=== PATIENT | female | born 1970 | race Caucasian/White ===

== ENCOUNTER 2024-11-17 13:54 | Outpatient (CLI) | payer BC, SELFPAY | END 2024-11-17 13:55 | disposition home or self-care (01) | PROVIDERS: PCP Family Medicine; Visit Provider Family Medicine | DX: E66.01 Morbid (severe) obesity due to excess calories (principal); R53.83 Other fatigue; Z13.6 Encounter for screening for cardiovascular disorders; F41.1 Generalized anxiety disorder; Z79.899 Other long term (current) drug therapy | CPT/HCPCS: 80048; 80061; 84443; 85025 ==

== ENCOUNTER 2024-12-15 13:43 | Outpatient (CLI) | payer BC, SELFPAY | END 2024-12-15 13:44 | disposition home or self-care (01) | LOC: MRI 13:45 | PROVIDERS: PCP Family Medicine; Visit Provider Orthopaedic Surgery | DX: M25.512 Pain in left shoulder (principal); M75.102 Unspecified rotator cuff tear or rupture of left shoulder, not specified as traumatic; M19.012 Primary osteoarthritis, left shoulder; M75.22 Bicipital tendinitis, left shoulder | CPT/HCPCS: 73221 ==

== ENCOUNTER 2025-01-04 15:10 | Outpatient (CLI) | payer BC, SELFPAY ==
--- NOTE | 2025-01-04 15:30 | CRLHL7_ITS ---
For Patients: As a result of the Century Cures Act, medical imaging exams and procedure reports are released immediately into your electronic medical record. You may view this report before your referring provider. If you have questions, please contact your health care provider. Indication: Neck pain. Technique: Multisequence multiplanar MRI of the cervical spine without the use of intravenous contrast. Comparison: MRI cervical spine dated 03/11/2022. Findings: Normal vertebral alignment and stature. Foreshortened appearance of the pedicles may reflecting a component of congenital spinal canal stenosis. No T1 hypointense infiltrative lesion. Multilevel disc desiccation and height loss with Modic type 1 degenerative endplate signal at C6-C7. The cervical spinal cord is normal in signal intensity. C2-C3: Mild facet joint arthrosis. No significant spinal canal or neural foraminal stenosis. C3-C4: Mild uncovertebral and facet joint arthrosis. No significant spinal canal foraminal stenosis. C4-C5: Small posterior disc osteophyte complex resulting in mild spinal canal stenosis. Mild bilateral neural foraminal narrowing associated with uncovertebral and facet joint arthrosis. C5-C6: Small posterior disc osteophyte complex resulting in mild spinal canal stenosis. Moderate bilateral neural foraminal narrowing associated with uncovertebral and facet joint arthrosis. C6-C7: Posterior disc bulge eccentric to the right. Decreased conspicuity of a small right paracentral disc protrusion on prior exam. No high-grade spinal canal stenosis. Moderate bilateral neural foraminal narrowing associated with uncovertebral and facet joint arthrosis. C7-T1: Mild facet joint arthrosis. No significant spinal canal or neural foraminal stenosis. Impression: 1. Similar multilevel disc height loss with associated Modic type 1 degenerative endplate signal at C6-C7. 2. Foreshortened appearance of the pedicles may reflect a component of congenital spinal canal stenosis. 3. At C4-C5, mild spinal canal stenosis and bilateral neural foraminal narrowing. 4. At C5-C6, mild spinal canal stenosis and moderate bilateral neural foraminal narrowing. 5. At C6-C7, posterior disc osteophyte complex eccentric to the right, decreased conspicuity of a right paracentral disc protrusion, and similar moderate bilateral neural foraminal narrowing. Dictated by Ronal Allan MD @ 01/05/2025 9:17:56 AM (Electronically Signed)
== END 2025-01-04 15:11 | disposition home or self-care (01) ==
LOC: MRI 15:11
PROVIDERS: PCP Family Medicine; Visit Provider Family Medicine
DX: M54.2 Cervicalgia (principal); M48.02 Spinal stenosis, cervical region; M50.221 Other cervical disc displacement at C4-C5 level; M50.222 Other cervical disc displacement at C5-C6 level; M50.223 Other cervical disc displacement at C6-C7 level; M54.9 Dorsalgia, unspecified; G89.29 Other chronic pain; Z98.890 Other specified postprocedural states; M79.602 Pain in left arm
CPT/HCPCS: 72141

== ENCOUNTER 2025-01-19 06:46 | Day surgery (SDC) | payer BC, SELFPAY ==
[2025-01-19] VITALS (18 sets, daily range): BP systolic 118–156; BP diastolic 74–86; PULSE 63–75; RESP 12–24; TEMP 36.4–36.7; O2SAT 88–100; BMI 47.2
[2025-01-19] MEDS: LACTATED RINGERS 1000 ML 1,000 ML 100 ML IV (07:10)
[2025-01-19] MEDS: CELECOXIB 200 MG CAPSULE PO (08:33)
[2025-01-19] MEDS: OXYCODONE (CR) 10 MG TAB.ER.12H PO (08:33)
[2025-01-19] MEDS: ACETAMINOPHEN 500 MG TABLET 1000 MG PO ×2 (08:33→14:30)
[2025-01-19] MEDS: fentaNYL 100 MCG/2 ML inj IVP (08:34)
[2025-01-19] MEDS: MIDAZOLAM HCL 1 MG/ML inj IVP (08:34)
--- NOTE | 2025-01-19 08:40 | SUR.PREOP ---
TIME?OUT:?0832 PT/RN/MDA?VERIFICATION?OF?SURGICAL?SITE,?PROCEDURE,?AND?CONSENT OBTAINED?PRIOR?TO?INVASIVE?PROCEDURE.
[2025-01-19] MEDS: TRANEXAMIC ACID 100 MG/ML INJ 1000 MG IV (09:22)
[2025-01-19] MEDS: CEFAZOLIN 1 GM inj IVP (09:22)
--- NOTE | 2025-01-19 09:30 | P.NB_ITS ---
Nerve Block Nerve Block Time Seen by Provider: 08:35 Date Seen: 01/19/25 Type of block requested by surgeon for post-operative analgesia: supraclavicular Side: left Time out performed: Yes Verification of patient name: Yes Verification of date of : Yes Site marking: site marked Name of person performing procedure: Roque Rodriguez Continuous monitoring Was continuous monitoring of O2 sat, B/P, cardiac rehabilitation specialist, recorded every 15 minutes?: Yes Procedure Checklist: sterile prep, needles and gloves Ultrasound guided. Images saved: Yes Medications given in 5ml increments after negative aspiration: Ropivicaine %: 0.5 mL: 25 Needle gauge: 20 Precedex (mcg): 25 Patient tolerated procedure well: Yes Additional comments: Injected in 5 mL increments after negative aspiration Block Charges Block Charge (with Pro Fee): Brachial Plexus Use of Ultrasound Machine for Block: Yes- US Guidance/pain block
--- NOTE | 2025-01-19 10:25 | P.ANES_ITS ---
Anesthesia Charges Start Date/Time Anesthesia Start Date: 01/19/25 Anesthesia Start Time: 08:43 Stop Date/Time Anesthesia Stop Date: 01/19/25 Anesthesia Stop Time: 11:45 Coding CPT Codes CPT Codes: ANESTH SHOULDER REPLACEMENT - 66532 ([id number]) P3 - PATIENT W/SEVERE SYS DISEASE, QK - PROGRAM PROPOSALS COORDINATOR 2-4 CNCRNT ANES PROC, QX - SPEECH PATHOLOGY TEACHER SVC W/ MD MED DIRECTION
--- NOTE | 2025-01-19 10:25 | W.ANESCHARGE ---
Anesthesia Charges Start Date/Time Anesthesia Start Date: 01/19/25 Anesthesia Start Time: 08:43 Stop Date/Time Anesthesia Stop Date: 01/19/25 Anesthesia Stop Time: 11:45 Coding CPT Codes CPT Codes: ANESTH SHOULDER REPLACEMENT - 56022 ([id number]) P3 - PATIENT W/SEVERE SYS DISEASE, QK - RECREATION ATTENDANT 2-4 CNCRNT ANES PROC, QX - MATERIALS ENGINEER SVC W/ MD MED DIRECTION
--- NOTE | 2025-01-19 11:05 | CRLHL7_ITS ---
For Patients: As a result of the Cures Act, medical imaging exams and procedure reports are released immediately into your electronic medical record. You may view this report before your referring provider. If you have questions, please contact your health care provider. INDICATION: Follow-up status post shoulder arthroplasty. COMPARISON: 11/20/2024 TECHNIQUE: Two views left shoulder FINDINGS: As discussed below: IMPRESSION: 1. Interval left shoulder hemiarthroplasty. Intact hardware. Expected postsurgical periarticular soft tissue gas. Dictated by Josh Gauthier MD @ 01/25/2025 10:44:45 AM (Electronically Signed)
--- NOTE | 2025-01-19 11:09 | P.ORPRC_ITS ---
Procedure Note Date of procedure: 01/19/25 Procedure: PREOPERATIVE DIAGNOSIS: End-stage left upper extremity glenohumeral joint osteoarthritis POSTOPERATIVE DIAGNOSIS: End-stage left upper extremity glenohumeral joint osteoarthritis, pharyngeal mass NAME OF OPERATION: Right upper extremity total shoulder arthroplasty, biceps tenodesis SURGEON: Donal Espinoza MD GENERAL UTILITY WORKER: HERIBERTO Boogie, Lilly Arenas MS ANESTHESIA: General endotracheal ESTIMATED BLOOD LOSS: 100 mL COMPLICATIONS: None SPECIMENS: None DRAINS: None PREOPERATIVE ANTIBIOTICS: Ancef 3 grams IMPLANTS: 1. Tornier 40 medium pegged glenoid component 2. Tornier 3B humeral stem 3. 45 mm x 15 mm, high eccentric humeral head INDICATIONS: The patient is a 54-year-old woman with a longstanding history of severe, unrelenting left shoulder pain secondary to end-stage glenohumeral joint osteoarthritis. Despite appropriate nonoperative management, including activity modification, anti-inflammatories, awkc-hrl-wgcanqm pain medication, physical therapy, and injections they continue to have pain and disability. Operative intervention was offered. The risks, benefits and expected outcomes were discussed in detail. These included but were not limited to: Infection, bleeding, injury to blood vessel or nerve, venous thromboembolism. All questions were answered to their satisfaction. Use of an cardiovascular physician assistant was necessary throughout the case for patient positioning and safety, soft tissue retraction, and closure. A modifier 22 should be added to this case. The patient weighs 117 kg with a BMI of 47. This made positioning and exposure difficult and added time to complete the case. A mass in the retropharyngeal area was noted, just proximal to the epiglottis on intubation. Photos were obtained and sent to Dr. Brook Emmanuel. He is planning to connect with the patient to figure out what the mass is. PROCEDURE: General anesthesia was administered. The patient was placed in the lazy beach chair position on the operating room table. The left upper extremity was prepped and draped in the usual sterile fashion. A standard deltopectoral incision was made. Subcutaneous dissection was taken with electrocautery to the deltopectoral interval. The cephalic vein was mobilized, lateral branches were cauterized. We bluntly entered the deltopectoral interval. We freed up the deltoid. The upper 1/3 of the insertion of the pectoralis was divided with cautery. The static retractor was placed. The clavipectoral fascia and CA ligament were divided. The circumflex vessels were controlled with electrocautery. The biceps was dissected out of the bicipital groove, was tagged with a #2 FiberWire suture and divided proximally. A FiberWire suture was placed in the subscapularis. The subscap was subperiosteally elevated off of the lesser tuberosity. The humeral head was delivered into the wound. The intramedullary humeral cutting guide was placed. We made the cut at the anatomic neck, in 20? of retroversion. Humeral sounds were used. Broaches were used until rotational stability was achieved. The cut protector was placed. Attention was then turned to the glenoid. Hohmann retractors were placed posteriorly. The labrum and biceps stump were sharply debrided. The origin of the inferior glenohumeral ligaments were subperiosteally released off of the glenoid. The glenoid appeared to be a 40 medium. The drill guide was placed centrally. The guide pin was placed. The reamer was used to concentric bone. The central drill hole was made. The drill guide was placed and single superior and 2 inferior drill holes were made. The trial glenoid component was placed and was an excellent fit. The glenoid was irrigated with normal saline then thoroughly dried. Cement was placed in the superior and inferior drill holes. The 40 medium pegged glenoid component was placed and was impacted. This was an excellent fit. Attention then returned to the humerus. The trial humeral head was placed. We reduced the shoulder and took it through a range of motion. It was found to be stable with appropriate soft tissue tension. Trial humeral components were removed. We placed 2 x #2 FiberWire sutures through the lesser tuberosity for subsequent subscap repair. The biceps was tenodesed in the groove with sutures placed through drill holes, into the canal. We assembled the humeral component on the back table and impacted it into the canal. This had excellent purchase. The shoulder was reduced and was found to have appropriate soft tissue tension. We did a 3 min dilute Betadine solution soak. We irrigated the wound with 3 L of normal saline via pulse lavage. We repaired the subscapularis to the lesser tuberosity with our previously placed FiberWire sutures. The rotator interval was repaired with a #2 FiberWire suture. The deltopectoral interval was loosely reapproximated with an 0 Vicryl in an interrupted oodure-fu-iuast fashion. Subcutaneous tissues were closed with the 2-0 Vicryl and a running 3-0 Monocryl suture. The skin was sealed with glue. A dry dressing and sling were applied Sponge and needle counts were correct x2. The patient tolerated the procedure well, there were no apparent complications. They were awakened and extubated in the operating room, taken to the postanesthesia care unit in satisfactory condition. PLAN: The patient will be mobilized with physical therapy. The sling will be used for 6 weeks postoperatively. Active range of motion in forward flexion and abduction as tolerates. No external rotation greater than 0? for 6 weeks postoperatively. They will to be discharged to home once medically appropriate.
--- NOTE | 2025-01-19 11:49 | P.ANES_ITS ---
Anesthesia Charges Start Date/Time Anesthesia Start Date: 01/19/25 Anesthesia Start Time: 08:43 Stop Date/Time Anesthesia Stop Date: 01/19/25 Anesthesia Stop Time: 11:45 Coding CPT Codes CPT Codes: ANESTH SHOULDER REPLACEMENT - 08593 ([id number]) P3 - PATIENT W/SEVERE SYS DISEASE, QK - GOLF CLUB HEAD FORMER 2-4 CNCRNT ANES PROC, QX - SHOT GRINDER OPERATOR SVC W/ MD MED DIRECTION
--- NOTE | 2025-01-19 11:49 | W.ANESCHARGE ---
Anesthesia Charges Start Date/Time Anesthesia Start Date: 01/19/25 Anesthesia Start Time: 08:43 Stop Date/Time Anesthesia Stop Date: 01/19/25 Anesthesia Stop Time: 11:45 Coding CPT Codes CPT Codes: ANESTH SHOULDER REPLACEMENT - 46216 ([id number]) P3 - PATIENT W/SEVERE SYS DISEASE, QK - ELECTRO MECHANICAL SOLAR TECHNICIAN 2-4 CNCRNT ANES PROC, QX - COUNTY HOME DEMONSTRATION AGENT SVC W/ MD MED DIRECTION
[2025-01-19] MEDS: fentaNYL 100 MCG/2 ML inj 50 MCG IVP ×2 (12:03→12:15)
--- NOTE | 2025-01-19 12:07 | SUR.PHASEI ---
Patient stated after she woke up a little more her pain in her shoulder is a level 10, sharp and aching.
--- NOTE | 2025-01-19 12:16 | SUR.PHASEI ---
Patient comfortable when first arrived in PACU. Then stated pain was a 10 after she woke up Medication administer times two. Vital signs stable. dressing dry and intact. After second dose of medication patient sleeping and slight snore.
[2025-01-19] MEDS: 0.9 % SODIUM CHLORIDE 500 ML IV (13:21)
[2025-01-19] MEDS: OXYCODONE 5 MG TABLET PO (13:50)
[2025-01-19] MEDS: hydrOXYzine pamoate 25 MG CAPSULE PO (13:50)
--- NOTE | 2025-01-19 14:32 | SUR.PHASEII ---
Discussed patient's 07/23 pain with provider and anesthesia. Pt states she has chronic pain and describes the pain as tingling, numb, uncomfortable. Patient states she would still like to go home, is feeling good enough to home. Pt up to chair, ambulating well no issues and is currently eating toast and juice. No nausea.
--- NOTE | 2025-01-19 14:46 | SUR.PHASEII ---
OT Shyla in room to work with pt and her daughter.
== END 2025-01-19 15:18 | disposition home or self-care (01) ==
PROVIDERS: PCP Family Medicine; Visit Provider Orthopaedic Surgery
PROC: 0RRJ0JZ Replacement of Right Shoulder Joint with Synthetic Substitute, Open Approach (ICD-10-PCS; CPT 23472; principal; 2025-01-19 08:45)
DX: M19.012 Primary osteoarthritis, left shoulder (principal); J39.2 Other diseases of pharynx; G89.18 Other acute postprocedural pain; E66.01 Morbid (severe) obesity due to excess calories; Z68.42 Body mass index [BMI] 45.0-49.9, adult
CPT/HCPCS: 23472; 23430; 01638; 64415; 73030; 76942; 97165; 97535; A9270; C1776; J0690; J1100; J2250; J2371; J2405; J2704; J2710; J2795; J3010; J3490; J7030; J7120; L3670

== ENCOUNTER 2025-03-12 13:48 | Outpatient (CLI) | payer BC, SELFPAY ==
--- NOTE | 2025-03-12 14:00 | CRLHL7_ITS ---
For Patients: As a result of the Century Cures Act, medical imaging exams and procedure reports are released immediately into your electronic medical record. You may view this report before your referring provider. If you have questions, please contact your health care provider. INDICATION: Tonsillar mass. COMPARISON: None. TECHNIQUE: CT soft tissue neck with IV contrast. ICD 370, 65 cc. FINDINGS: Normal bilateral parotid and submandibular glands. Grossly normal thyroid gland. Metallic streak artifact from left shoulder arthroplasty. scattered small normal-sized cervical lymph nodes bilaterally. No supraclavicular superior mediastinal adenopathy Nasopharynx and oropharynx are clear. No inflammation within the paravertebral fat pads are Rich ritual space. There is asymmetric enlargement of the left palatine tonsil which appears to protrude into the lateral aspect of the left oropharynx (best appreciated on series 4, image 36). There is however no evidence of a discrete enhancing mass. Calcified tonsilliths on the left. Normal thickness of the epiglottis. Normal glottis with symmetric vocal cords. Lung apices are clear. Normal alignment of the cervical spine. No prevertebral soft tissue swelling. Visualized paranasal sinuses mastoid air cells are clear. IMPRESSION: 1. Asymmetric enlargement of the left palatine tonsil which appears to partially protrude into the lateral aspect of the left oropharynx. No discrete underlying enhancing mass. Calcified tonsilliths on the left. No surrounding inflammatory change. 2. No adenopathy. 3. Remaining deep soft tissues of the neck are normal. Please note that all CT scans at this facility use dose modulation, iterative reconstruction, and/or weight-based dosing when appropriate to reduce radiation dose to as low as reasonably achievable. Dictated by Matt Allan MD @ 03/13/2025 8:55:59 AM (Electronically Signed)
--- NOTE | 2025-03-12 14:30 | CRLHL7_ITS ---
For Patients: As a result of the Century Cures Act, medical imaging exams and procedure reports are released immediately into your electronic medical record. You may view this report before your referring provider. If you have questions, please contact your health care provider. Indication: Chronic sinusitis. Technique: Noncontrast axial CT of the paranasal sinuses with coronal reformats are provided. No comparisons. Findings: The visualized paranasal sinuses are clear. The ostiomeatal complexes are patent bilaterally. The visualized intraorbital contents appear within normal limits. Incidental bilateral nishant bullosa. Mild rightward nasal septal deviation. Impression: 1. ImpressionMild rightward nasal septal deviation. 2. Otherwise, unremarkable CT of the paranasal sinuses. Please note that all CT scans at this facility use dose modulation, iterative reconstruction, and/or weight-based dosing when appropriate to reduce radiation dose to as low as reasonably achievable. Dictated by Chidi Juarez MD @ 03/12/2025 3:48:15 PM (Electronically Signed)
== END 2025-03-12 13:49 | disposition home or self-care (01) ==
PROVIDERS: PCP Family Medicine; Visit Provider Otolaryngology
DX: J32.9 Chronic sinusitis, unspecified (principal); J34.2 Deviated nasal septum
CPT/HCPCS: 70486; 70491; Q9967

== ENCOUNTER 2025-04-23 09:03 | Outpatient (CLI) | payer BC, SELFPAY ==
--- NOTE | 2025-04-23 09:15 | CRLHL7_ITS ---
For Patients: As a result of the Century Cures Act, medical imaging exams and procedure reports are released immediately into your electronic medical record. You may view this report before your referring provider. If you have questions, please contact your health care provider. Indication: Low back pain. Technique: Multiplanar multisequence noncontrast MR images of the lumbar spine. Comparison: None. Findings: The lumbar lordosis is preserved. Vertebral heights maintained. No acute fracture. No T1 hypointense lesions. Normal conus terminates at L1-2. T12-L1: Moderate disc height loss. Posterior disc bulge. Superimposed shallow right central disc extrusion. Mild facet arthropathy. Mild spinal canal narrowing. No neural foraminal narrowing. L1-2: Shallow disc bulge. Mild facet arthropathy. Minimal spinal canal narrowing. No neural foraminal narrowing. L2-3: Moderate disc height loss. Minimal vertebral body edema. Shallow disc bulge. Caudally migrated left subarticular disc extrusion measuring 4 mm in short axis moderately narrows the left lateral recess. Mild facet arthropathy. Minimal spinal canal narrowing. No neural foraminal narrowing. L3-4: Moderate disc height loss. Shallow disc bulge. Mild facet arthropathy. Mild spinal canal and lateral recess narrowing. Bqtu-wk-uhhxqojf left and mild right neural foraminal narrowing. L4-5: Minimal grade 1 anterolisthesis. Moderate disc degeneration and ytzi-vx-ludiatmu disc height loss. Shallow disc bulge and endplate spondylitic ridging. Moderate facet arthropathy. Thickening ligamentum flavum. Asjd-oy-itmfpngl spinal canal and lateral recess narrowing. Mild bilateral neural foraminal narrowing. L5-S1: Moderate disc degeneration. Disc height loss associated with type 2 degenerative signal changes. Posterior disc bulging and endplate spondylitic ridging. Dbdw-wc-ajewsglt facet arthropathy. No spinal canal narrowing. Swdy-tj-lxtjqbeg left and mild right neural foraminal narrowing. Sacroiliac joint degenerative changes. Impression: 1. Multilevel lumbar spondylosis without spinal canal or neural foraminal stenosis. 2. At L2-3, caudally migrated left subarticular disc extrusion moderately narrows the left lateral recess. 3. At L4-5, ydks-ca-ayzrazyt spinal canal and lateral recess narrowing. Moderate facet arthropathy. Dictated by Jayjay Montalvo MD @ 04/25/2025 10:40:49 AM (Electronically Signed)
== END 2025-04-23 09:04 | disposition home or self-care (01) ==
PROVIDERS: PCP Family Medicine; Visit Provider Family Medicine
DX: M54.50 Low back pain, unspecified (principal); M47.896 Other spondylosis, lumbar region; M51.26 Other intervertebral disc displacement, lumbar region
CPT/HCPCS: 72148